=== PATIENT | male | born 1970 | race Caucasian/White ===

== ENCOUNTER → 2024-11-25 | Outpatient (CLI) | payer BC ==
--- NOTE | 2024-11-25 11:57 | CTL ---
EXAMINATION TYPE: CT Low Dose Lung DATE OF EXAM ORDERED: 11/25/2024 COMPARISON: None CLINICAL INDICATION: Male, 54 years old with history of Z12.2 LUNG CA SCR F17.210 CURRENT SMOKER; [facility] , Current smoker, 1PPD x30yrs., Lung cancer screening, History of Smoking/tobacco use. TECHNIQUE: Low dose computed tomography scan was performed through the chest at 1 mm thick sections a nd reconstructed images in multiple planes at 1 mm and [address] DLP: 80.[address] CTDI: 1.8 mGy Automated exposure control for dose reduction was used. CT DIAGNOSTIC QUALITY: Satisfactory FINDINGS: Nodules: Wedge-shaped region of consolidation within the periphery of the lateral right upper lobe measuring 4 .8 x 1.9 cm (series 6, image 17). Additional irregular left lateral upper lobe opacities. Left mid lung 4.7 mm solid pulmonary nodule (series 6, image 37). Right lower lobe 5.9 mm pulmonary nodule (series 6, image 62). LUNGS: COPD: Severity: Moderate centrilobular emphysema changes with biapical bulla. Fibrosis: Severity: None Lymph nodes: None Other findings: None RIGHT PLEURAL SPACE: Effusion: None Calcification: None Thickening: None Pneumothorax: None LEFT PLEURAL SPACE: Effusion: None Calcification: None Thickening: None Pneumothorax: None HEART: Heart Size: Normal Coronary Calcification: None Pericardial Effusion: None OTHER FINDINGS: Upper abdomen: None Bony thorax: None Supraclavicular region: None Other: Mild atherosclerotic calcification of the aorta and its branches. IMPRESSION: 1. Irregular right upper lobe lateral consolidative opacity with additional region within the left l ateral upper lobe. Could represent scarring versus underlying mass. 2. Couple of pulmonary nodules with largest measuring up to 5.9 mm. 3. Moderate emphysematous changes with biapical bulla. CT LUNG RAD AND CT CHEST RECOMMENDATION: Lung-Rad 4A Suspicious: Follow-up 3 month LDCT or PET/CT may be used when there is a > 8 mm solid component. S Modifier (other clinically significant findings): None [facility], , 11/25/2024 11:55 AM
== END | disposition home or self-care (01) ==
LOC: RADCTMAIN 11:14
PROVIDERS: ATTEND Family Medicine
DX: Z12.2 Encounter for screening for malignant neoplasm of respiratory organs (principal); J43.2 Centrilobular emphysema; F17.210 Nicotine dependence, cigarettes, uncomplicated; R91.8 Other nonspecific abnormal finding of lung field
CPT/HCPCS: 71271

== ENCOUNTER 2025-01-27 12:55 | Day surgery (SDC) | payer BC ==
[~2025-01-27 12:55] MED LIST: HYDROmorphone 0.5 MG/0.5 ML SYRINGE IVP PRN; LIDOCAINE 1% (10MG/ML) FOR IV START INTRADERMA PRN; MIDAZOLAM 2 MG/2 ML VIAL IV PRN; fentaNYL (PF) 50 MCG/ML 2 ML AMP IVP PRN
[2025-01-27] MEDS: LACTATED RINGERS 1,000 ML IV SCH ×2 (13:28)
[2025-01-27] MEDS: IV FLUID CONTINUATION 1,000 ML IV ONE (13:29)
[2025-01-27 13:33] VITALS: BP 139/84; PULSE 76; RESP 16; TEMP 98.7
[2025-01-27] MEDS: DEXAMETHASONE SOD PHOSPHATE 4 MG/ML 1 ML VIAL IV ONE (13:35)
[2025-01-27] MEDS: ONDANSETRON 4 MG/2 ML VIAL IVP ONE (13:35)
--- NOTE | 2025-01-27 13:40 | CT ---
EXAMINATION TYPE: CT Chest ION protocol DATE OF EXAM: 01/27/2025 COMPARISON: PET/CT 12/24/2024, CT low-dose lung 11/25/2024 CLINICAL INDICATION: Male, 54 years old with history of bronchoscopy guidance; [facility], pre-op bronch TECHNIQUE: CT scan of the thorax is performed without IV contrast. CT DLP: 390 mGycm Automated exposure control for dose reduction was used. FINDINGS: LUNGS: No pleural effusion or pneumothorax. Moderate centrilobular emphysematous changes with bilater al apical bulla redemonstrated. Redemonstration of irregular right upper lobe peripheral consolidativ e opacity measuring grossly 3.8 x 2.3 cm (series 4, image 91). This did demonstrate some FDG activity on prior PET/CT. Stable right lower lobe 6.1 mm solid pulmonary nodule (series 4, image 318). Did no t demonstrate FDG activity in prior PET/CT. Development of posterior left upper lobe consolidative op acity around the previously seen bulla extending into the superior left hilum. Stable left midlung 5. 2 mm pulmonary nodule (series 4, image 200). No significant FDG activity in prior PET/CT. Left upper lobe calcific granuloma. The tracheobronchial tree is patent. MEDIASTINUM: Development of enlarged 1.2 cm short axis AP window lymph node. There are no definitive greater than 1 cm hilar or mediastinal lymph nodes. No cardiomegaly or pericardial effusion is seen. Mild athero sclerotic calcification of the aorta and its branches. HEART: Size within normal limits.No pericardial effusion. No significant coronary artery calcificatio ns. OTHER: No additional significant abnormality is seen. IMPRESSION: 1. Similar peripheral right upper lobe irregular consolidative opacity which demonstrated FDG activi ty on prior PET/CT. This is concerning for possible primary lung malignancy versus other etiologies s uch as infectious/inflammatory process. 2. Development of posterior left upper lobe patchy consolidative opacities extending into the superi or hilum. This raises concern for pneumonia. 3. Couple of additional stable pulmonary nodules which do not demonstrate FDG activity on prior PET/ CT. Follow-up CT chest in 3-6 months is recommended. 4. New enlarged AP window lymph node. This may be reactive to #2 with underlying metastasis is not e xcluded. 5. Moderate emphysematous changes with biapical bulla. Follow-up recommendations for incidental pulmonary nodules are per [employer] [place] [employer] or [employer] [place] [employer]. [facility], , 01/27/2025 1:37 PM
== END 2025-01-27 14:53 | disposition home or self-care (01) ==
LOC: ORWHC2ENDO 12:55
PROVIDERS: ATTEND Internal Medicine Critical Care Medicine
DX: Z53.8 Procedure and treatment not carried out for other reasons (principal); R91.8 Other nonspecific abnormal finding of lung field; Z01.818 Encounter for other preprocedural examination
CPT/HCPCS: 71250; J1100; J2405